=== PATIENT | male | born 1995 | race Caucasian/White ===

== ENCOUNTER 2024-05-07 09:00 | Emergency (ER) | payer SELFPAY ==
[2024-05-07 09:01] VITALS: BP 114/42; PULSE 118; RESP 18; TEMP 36.7; O2SAT 96
--- NOTE | 2024-05-07 09:14 | PC.NURSE ---
Covid Culture sent to lab
--- NOTE | 2024-05-07 09:16 | ED_ITS ---
HPI - Nausea/Vomiting/Diarrhea General Chief complaint: Nausea/Vomiting/Diarrhea Stated complaint: cough Time Seen by Provider: 05/07/24 09:07 Source: patient Mode of arrival: ambulatory Limitations: no limitations History of Present Illness HPI Narrative: 28 years old white male drove himself to the emergency room complaining of nausea, vomiting diarrhea started yesterday noon. Patient reports vomiting maximum 4 times since yesterday, diarrhea maximum 5 times since yesterday. Patient report having fever, did not take any fever medication over the last 24 hours. Patient reports that he works in a [employer]. Patient pending go to work today. Patient is healthy otherwise does not take medicine at home. Related Data Allergies Allergy/AdvReac Type Severity Reaction Status Date / Time No Known Allergies Allergy Verified 05/07/24 09:12 Review of Systems Review of Systems: All systems reviewed & are unremarkable except as noted in HPI and below Exam Narrative: General appearance: Well-developed, well-nourished Skin: Normal color Head: Normocephalic, nontraumatic Eyes: Clear conjunctiva ENT: Oropharynx normal, ears normal, nose normal Neck: Supple, nontender Chest and respiratory: Airway patent, no respiratory distress, no accessory muscle use Heart: Regular rate/rhythm Abdomen: Soft, nontender, no organomegaly, quiet bowel sounds Musculoskeletal: Normal range of motion, nontender back Neurologic: Alert and oriented ?3, FULL TIME PARAMEDIC is normal as tested, no gross motor deficit Course Vital Signs Vital signs: Vital Signs Temperature 36.7 C 05/07/24 09:01 Pulse Rate 118 H 05/07/24 09:01 Respiratory Rate 18 05/07/24 09:01 Blood Pressure 114/42 L 05/07/24 09:01 Pulse Oximetry 96 05/07/24 09:01 Oxygen Delivery Room Air 05/07/24 09:01 Temperature 36.7 C 05/07/24 09:01 Pulse Rate 118 H 05/07/24 09:01 Respiratory Rate 18 05/07/24 09:01 Blood Pressure 114/42 L 05/07/24 09:01 Pulse Oximetry 96 05/07/24 09:01 Oxygen Delivery Room Air 05/07/24 09:01 MDM - Nausea/Vomiting/Diarrhea MDM Narrative Medical decision making narrative: Viral gastroenteritis is my concern Patient tested negative for COVID, flu and RSV. Discharged on Zofran Differential Diagnosis Differential diagnosis: Likely gastroenteritis and dehydration Lab Data Labs: Lab Results 05/07/24 Range/Units 09:07 Influenza A (RT-PCR) Pending Influenza B (RT-PCR) Pending RSV (RT-PCR) Pending SARS-CoV-2 RNA (RT-PCR) Pending Critical Care Time Critical Care Time Critical Care Time: No Discharge Plan Discharge Clinical Impression: Gastroenteritis Patient Disposition: Home, Self-Care Condition: Stable Instructions: Gastroenteritis (ED) Additional Instructions: Return if symptoms are worsening , call your family physician for appointment, take Tylenol as as needed for aches and pain, continue home medications. Patient Language: Portuguese Prescriptions: New ondansetron HCl 4 mg tablet 4 mg PO Q4H Qty: 10 0RF Rx Instructions: 1st dose 1-2 hr before radiation Follow-up/Referrals: UNKNOWN,DOCTOR [Primary Care Provider] - Stand Alone Forms: Work/School Release IP
[2024-05-07 09:50] LABS: Influenza A QL RT-PCR Negative (Negative); Influenza B QL RT-PCR Negative (Negative); RSV RNA, RT-PCR Negative (Negative); SARS-CoV-2 RNA PCR Negative (Negative)
== END 2024-05-07 09:35 | disposition home or self-care (01) ==
LOC: CHSED 09:29
PROVIDERS: Emergency Provider Emergency Medicine
DX: K52.9 Noninfective gastroenteritis and colitis, unspecified (principal); Z20.822 Contact with and (suspected) exposure to COVID-19
CPT/HCPCS: 87637; 99283